=== PATIENT | male | born 1960 | race African-American/Black ===

== ENCOUNTER → 2016-10-12 | Day surgery (SDC) | payer OTHER ==
[~2016-10-12] VITALS: Ht 182.9 cm; Wt 120.0 kg
[~2016-10-12] MED LIST: AMLO10TA2 PO; ASPI81CH CHEW; BUPIVACAINE HCL PF 0.5% 30 ML VIAL ONE; CEPH-460 PO; CHLORHEXIDINE GLUCONATE 2 % 1 PACK (2 CLOTHS) TOPICAL PRN; FAMOTIDINE 20 MG/2 ML VIAL ONE; HYDR50TA3 PO; INSULIN HUMAN REGULAR 1,000 UNITS/10 ML VIAL SQ PRN; LACTATED RINGER'S 1000 ML IV PRN; LIDOCAINE HCL 2% 50 ML VIAL ONE; LISI10TA3 PO; METOPROLOL TARTRATE 25 MG TAB PO PRN; MIDAZOLAM HCL 2 MG/2 ML VIAL ONE; NEOMYCIN/POLYMYXIN 1 ML G.U. IRRIGANT ONE; NORC5TAB PO; ONDANSETRON HCL 4 MG/2 ML VIAL IV PUSH ONE; POVIDONE IODINE 5% (ANTISEPSIS KIT) 4 APPLICATIONS EACH NARE PRN; PROPOFOL 200 MG/20 ML AMP IV ONE; SODIUM CHLORID 0.9% 500 ML IV PRN; TRIAMCINOLONE ACETONIDE 40 MG/ML VIAL ONE; VITA2000 PO; ceFAZolin 2 GM PREMIX 50 ML IV SCH
[2016-10-12 09:48] VITALS: BP 156/90; PULSE 78; RESP 18; TEMP 97.3; O2SAT 99
[2016-10-12 10:08] LABS: MEAN CELL VOLUME 83.5 FL (80.0-100.0); MEAN CORPUSCULAR HEMOGLOBIN 28.3 PG (27.0-34.0); MEAN CORPUSCULAR HGB CONC 33.9 % (32.0-36.0); PLATELET COUNT 139 TH/MM3 (150-450); RED BLOOD COUNT 4.68 MIL/MM3 (4.50-5.90); RED CELL DISTRIBUTION WIDTH 12.1 % (11.6-17.2); REVIEW FLAG FINAL; WHITE BLOOD COUNT 4.8 TH/MM3 (4.0-11.0)
[2016-10-12 12:25] VITALS: BP 138/70; PULSE 70; RESP 16; TEMP 98; O2SAT 98
--- NOTE | 2016-10-12 17:39 | EKG ---
Date Performed: 10/12/2016 Time Performed: 10:08:07 PTAGE: 55 years EKG: Sinus rhythm NORMAL ECG NO PREVIOUS TRACING DOCTOR: Clover Kenyon Interpretating Date/Time 10/12/2016 17:35:58
--- NOTE | 2016-10-12 21:31 | MP ---
cc: MESFIN TIRADO III, M.D. DATE OF SURGERY: 10/12/2016. PREOPERATIVE DIAGNOSIS: Left middle finger mass. OPERATIVE PROCEDURE PERFORMED: Left middle finger mass excisional biopsy. SURGEON: Mesfin Tirado III, MD. DESCRIPTION OF THE PROCEDURE IN DETAIL: The patient was brought to the operating room and placed supine on the operating table. After the correct site and side of surgery were verified by members of each team in the room multiple times including the patient and myself and after adequate preoperative markings and preoperative written consent were verified by everyone and after adequate IV sedation had been achieved and a time-out had been performed, the left upper extremity was prepped and draped in the traditional sterile surgical fashion. A 50/50 mixture of 2% plain lidocaine and 0.5% plain Marcaine was infiltrated in the skin and subcutaneous tissue on the dorsal aspect of the finger. The limb was exsanguinated with a gentle Charli wrap and a highly placed well-padded axillary tourniquet was inflated to 200 mmHg for a total of 21 minutes. A transverse-oriented incision within the skin crease was made on the dorsal aspect of the finger and carried down through skin and subcutaneous tissue. Blunt dissection was then performed. A fluid-filled mass was identified and dissected free from the surrounding tissues down to the extensor mechanism which was intact but its sheath was abraded. There was no evidence of any perforation into the joint but this area was further abraded to encourage inflammatory tissue to prevent recurrence. The mass was passed off the field in its entirety. Passive range of motion was performed and under loupe-visualized examination, there was no penetration through the extensor tendon identified. The redundant skin was excised and the skin edges were reapproximated using interrupted and running 4-0 nylon sutures after a thorough irrigation was performed. The hand and arm were thoroughly cleansed and dried. Betadine and Adaptic dressings were applied atop the wound followed by a bulky soft dressing. The axillary tourniquet was released and the hand and all the fingers became immediately soft pink and warm and had brisk capillary refill of less than 2 seconds. The patient was awakened from anesthesia and transported to the post-anesthesia care unit awake and in stable condition at the end of the case. Sponge, needle and instrument counts were correct at the end of the case as reported by the nurses in the room. Mesfin MD LIANG Thorne III /12:00 PM /9:25 PM
== END | disposition home or self-care (01) ==
LOC: PHSDC 08:50
PROVIDERS: ATTEND Orthopaedic Surgery Hand Surgery
DX: M67.441 Ganglion, right hand (principal); I10 Essential (primary) hypertension; Z01.818 Encounter for other preprocedural examination; Z01.810 Encounter for preprocedural cardiovascular examination
CPT/HCPCS: 01810; 26160; 36415; 85027; 88304; 93005; J0690; J2250; J2405; J3010; J7120; 88305; J3301